=== PATIENT | female | born 2000 | race Caucasian/White ===

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

== ENCOUNTER 2024-12-11 05:13 | Inpatient (IN) ==
[2024-12-11] MEDS ORDERED: LIDOCAINE 1% LOCAL 20 ML VIAL INFIL PRN (06:37)
[2024-12-11] MEDS: LACTATED RINGER'S 1,000 ML IV PRN (06:51)
[2024-12-11] MEDS ORDERED: NALBUPHINE HCL INJ 10 MG/ML AMP IV PRN (06:59)
[2024-12-11] MEDS ORDERED: SODIUM CHLORIDE 0.9% PF INJ 10 ML VIAL EPI PRN (06:59)
[2024-12-11] MEDS ORDERED: ROPIVACAINE 0.5% PF 5 MG/ML 20 ML VIAL EPI PRN (06:59)
[2024-12-11] MEDS ORDERED: NALOXONE HCL 1 MG in SODIUM CHLORIDE 0.9% 1,000 ML IV PRN (06:59)
[2024-12-11] MEDS ORDERED: NALOXONE HCL 0.4 MG/1 ML VIAL/CARP IV PRN (06:59)
[2024-12-11] MEDS ORDERED: LIDOCAINE 2% MPF LOCAL 5 ML VIAL EPI PRN (06:59)
[2024-12-11] MEDS ORDERED: BUPIVACAINE 0.25% PF 30 ML VIAL EPI PRN (06:59)
[2024-12-11] MEDS ORDERED: diphenhydrAMINE 50 MG/ML VIAL IV PRN (06:59)
--- NOTE | 2024-12-11 06:59 | Anesthesiology Consultation ---
Date of Service December 11, 2024 Assessment & Plan Chart Review Chart Review: Acceptable Risk for Labor Epidural Consults Requested none History Height/Weight Height: 5 ft 1 in Weight: 94.9 kg Allergies Allergy/AdvReac Type Severity Reaction Status Date / Time No Known Allergies Allergy Verified 09/10/21 21:10 Medications Home Medications Medication Instructions Recorded Confirmed Last Taken 1 tab PO DAILY 12/11/24 12/11/24 Unknown Vitamin B-12 1,000 mcg PO DAILY 12/11/24 12/11/24 Unknown Vitron-C 1 tab PO DAILY 12/11/24 12/11/24 Unknown Active Medications Generic Name Dose Route Start Last Admin Trade Name Freq PRN Reason Stop Dose Admin Lactated Ringer's 1,000 mls @ 125 mls/hr 12/11/24 06:37 12/11/24 06:53 Lr IV 12/13/24 06:36 999 mls/hr .Q8H PRN Infusion L&D Protocol Protocol Past Medical History Medical History Iron deficiency anemia Depression took Zoloft prior to . Was seeing therapist in 04/2021 Spontaneous vaginal delivery 04/11/20 [facility] [place] No significant past medical history Past Family History Family History Other Gallbladder disease Hypertension Past Surgical History Surgical History H/O foot surgery No significant past surgical history Social History Smoking Status: Former smoker tobacco type: e-cigarettes Do You Dip or Chew Tobacco: No Hx Alcohol Use: No Hx Substance Use: Yes substance use type: marijuana Substance Use Type Other:: stopped with + test Last Used Substance: Unknown Last Used Substance Other:: Hasn't smoked marijuana since beginning of . Has med mj card. Physical Exam Vital Signs Last Vital Signs Temp 36.6 C 12/11/24 05:55 Pulse 91 H 12/11/24 05:55 Resp 18 12/11/24 05:55 BP 133/65 12/11/24 05:55
--- NOTE | 2024-12-11 07:01 | History & Physical Report ---
Date of Service December 11, 2024 Assessment & Plan Admission and Anticipated Discharge Date Admission Date: December 11, 2024 History of Present Illness Chief Complaint: onset of labor Primary Care Provider: NO PCP 24 F P2002 at term admitted in labor. GBS is negative. Allergies Allergy/AdvReac Type Severity Reaction Status Date / Time No Known Allergies Allergy Verified 09/10/21 21:10 Home Medications Medication Instructions Recorded Confirmed Type 1 tab PO DAILY 12/11/24 12/11/24 History Vitamin B-12 1,000 mcg PO DAILY 12/11/24 12/11/24 History Vitron-C 1 tab PO DAILY 12/11/24 12/11/24 History Patient History Medical History Iron deficiency anemia Depression took Zoloft prior to . Was seeing therapist in 04/2021 Spontaneous vaginal delivery 04/11/20 [facility] [place] significant past medical history Surgical History H/O foot surgery No significant past surgical history Family History Other Gallbladder disease Hypertension Social History Smoking Status: Former smoker Tobacco Type: E-cigarettes / Vaping Second Hand Exposure: Yes; Do You Dip or Chew Tobacco: No; Hx Alcohol Use: No Hx Substance Use: Yes Last Used Substance: Unknown Last Used Substance Other:: Hasn't smoked marijuana since beginning of . Has med mj card. 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 How many Children do You have: 1 Feels Safe at Home: Yes Childhood Exposure to Second-Hand Smoke: No Diet: regular Dental Care, Regularly: Yes Gender Identity: Female Assistive Devices: Glasses OB History x2 [employer] History neg Review of Systems All systems reviewed & are unremarkable except as noted in HPI & below Physical Exam Constitutional: WD/WN, vitals as above Respiratory: normal respiratory effort, lungs clear to auscultation Cardiovascular: Rate/Rhythm: regular rate and regular rhythm Gastrointestinal (Abdomen): Inspection/Auscultation: abdomen normal to inspection Musculoskeletal: Extremities: extremities normal to inspection Skin: no rashes, warm and dry Neurologic: patellar DTR's 2+ bilat, sensation intact Psychiatric: A+Ox3, euthymic affect Genitourinary: Manual OB Exam: + cervical dilation 3 cm and 4 cm, + cervical effacement 80% and + station -2 OB Exam Monitor Tracing: + external FHT monitor used, + external uterine monitor used, + category I and + normal FHT variability Results & Data Vital Signs (Past 12 Hours) Vital Signs Temp Pulse Resp BP 12/11/24 05:55 36.6 C 91 H 18 133/65 12/11/24 05:24 36.6 C 12/11/24 05:22 91 H 133/65 Monitoring External Monitor Cat 1
[2024-12-11 07:07] LABS: Hematocrit (blood only) 32.9 % (37.0-47.0); Hemoglobin 10.8 g/dl (12.0-16.0); Mean Corpuscular Hemoglobin 28.4 pg (25.0-34.0); Mean Corpuscular Volume 86.6 fL (80.0-100.0); Platelet Count 417 K/uL (130-400); RDW Standard Deviation 44.3 fL (36.4-46.3); Red Blood Count 3.80 M/uL (4.20-5.40); White Blood Count 17.10 K/ul (4.8-10.8)
[2024-12-11] MEDS: fentANYL 2 MCG/ML BUPIVacaine 0.125%-NSS 100ML BAG ONE (07:25)
[2024-12-11] MEDS: LIDOCAINE 2%/EPINEPHRINE 1:200,000 20 ML PF ONE ×2 (07:36→10:50)
[2024-12-11] MEDS: SODIUM CHLORIDE 0.9% PF INJ 10 ML VIAL ONE (07:38)
[2024-12-11] MEDS: BUPIVACAINE 0.25% PF 30 ML VIAL ONE (07:38)
--- NOTE | 2024-12-11 08:36 | Obstetrical Progress Note ---
Date of Service December 11, 2024 Assessment & Plan Admission and Anticipated Discharge Date Admission Date: December 11, 2024 Subjective Patient seen and examined. Admitted by Dr. Alvares for labor and at term. reviewed her records and history received epidural for pain, comfortable now. Vital signs stable afebrile, heart rate had been category 1, Cervix is 6-7 , 70%, head is -1 station, large bulging bag, offerred AROM and patient accepted, moderate meconium stained fluid was obtained Anterior fontanelle at 11 o'clock position, placed to lateral position Continue to monitor closely Results & Data Vital Signs (Past 12 Hours) Vital Signs Temp Pulse Resp BP Pulse Ox 12/11/24 08:28 89 91 12/11/24 08:26 82 91 12/11/24 08:23 77 91 12/11/24 08:21 80 100 12/11/24 08:19 63 115/59 L 12/11/24 08:16 63 100 12/11/24 08:13 81 105/76 12/11/24 08:11 78 91 12/11/24 08:10 85 90 12/11/24 08:06 81 100 12/11/24 08:04 94 H 133/58 L 12/11/24 08:01 71 99 12/11/24 07:58 68 112/55 L 12/11/24 07:56 100 12/11/24 07:56 69 12/11/24 07:56 59 L 149/59 H 12/11/24 07:53 74 102/53 L 12/11/24 07:51 79 104/60 81 L 12/11/24 07:49 80 104/54 L 12/11/24 07:48 82 92 12/11/24 07:47 73 103/57 L 12/11/24 07:46 91 H 97 12/11/24 07:45 78 120/67 12/11/24 07:43 86 12/11/24 07:43 80 114/58 L 93 12/11/24 07:42 96 H 113/66 12/11/24 07:41 85 87 L 12/11/24 07:39 82 123/66 12/11/24 07:37 97 H 120/65 92 12/11/24 07:36 86 94 12/11/24 07:35 82 131/64 12/11/24 07:33 84 122/70 12/11/24 07:31 84 128/66 100 12/11/24 07:29 79 135/69 92 12/11/24 07:27 91 H 138/81 12/11/24 07:26 90 98 12/11/24 07:25 75 116/63 12/11/24 07:24 75 116/66 12/11/24 07:23 20 12/11/24 07:23 36.7 C 20 12/11/24 07:21 79 80 L 12/11/24 07:20 80 90 12/11/24 07:19 71 120/77 12/11/24 07:16 90 75 L 12/11/24 07:13 90 85 L 12/11/24 07:11 94 H 100 12/11/24 07:08 90 135/84 12/11/24 07:06 91 H 99 12/11/24 05:55 36.6 C 91 H 18 133/65 12/11/24 05:24 36.6 C 12/11/24 05:22 91 H 133/65
[2024-12-11] MEDS: LIDOCAINE 2%/EPINEPHRINE 1:200,000 20 ML PF EPI STA (10:37)
--- NOTE | 2024-12-11 10:41 | Anesthesia Procedure Note ---
Date of Service December 11, 2024 Anesthesia Epidural Re-Dose Vital Signs Temp Pulse Resp BP Pulse Ox 37.0 C 81 20 126/59 L 97 12/11/24 10:00 12/11/24 10:37 12/11/24 10:00 12/11/24 10:30 12/11/24 10:37 Notes Pain Intensity: 2 Dilatation (cm): 8.5 Effacement (%): 90 Called by nursing to evaluate epidural as the patient is having increased pain. The epidural was re-dosed with the following medications (all medications via epidural route) after negative aspiration of the epidural catheter for CSF/HEME. 5 cc 2% Lidocaine with epi via epidural After Epidural Re-Dose Mental Status: alert / awake / arousable and participated in evaluation Pain: improving with treatment Airway Patency, RR, SpO2: stable & adequate BP & HR: stable & adequate
[2024-12-11] MEDS: fentANYL 2 MCG/ML BUPIVacaine 0.125%-NSS 100ML BAG EPI PRN (13:02)
[2024-12-11] MEDS: OXYTOCIN 30 UNITS/NSS 30 UNITS/500 ML BAG IV PRN (13:22)
[2024-12-11] MEDS ORDERED: HYDROCORTISONE ACETATE 25 MG SUPP PR PRN (13:30)
[2024-12-11] MEDS ORDERED: OXYTOCIN 30 UNITS/NSS 30 UNITS/500 ML BAG IV PRN (13:30)
--- NOTE | 2024-12-11 13:34 | Delivery Summary ---
Vaginal Delivery Summary Date of Service December 11, 2024 Vaginal Delivery Summary Patient was found to be fully dilated and desired to push. She pushed with 2 contractions min and delivered the head and then shoulders with minimal traction. Loose nuchal cord x1 was reduced. The baby was handed off to the mother. The cord was clampedx2 and cut at 1 minute. The vagina and perineum were checked and found to have a small 2 nd degree perineal laceration. The vaginal mucosa was repaired with 2/0 vicryl and skin on subcuticular fashion. The placenta was delivered spontaneously as intact and complete. The uterus was explored and found to be empty. QBL was 200 ml ml. The fundus was firm. The baby was a viable male , Apgars 8/9, the weight is pending The mother and the baby tolerated the procedure well. No complications happened and I was present during whole procedure.
--- NOTE | 2024-12-11 14:33 | Anesthesia Procedure Note ---
Date of Service December 11, 2024 Anesthesia Post Epidural Note Vital Signs Vital Signs: Temp Pulse Resp BP Pulse Ox 36.8 C 95 H 18 140/63 89 L 12/11/24 12:01 12/11/24 13:43 12/11/24 12:43 12/11/24 13:43 12/11/24 13:13 Pain Intensity Lower Abdomen: Pain Intensity: 0 Notes Mental Status: alert / awake / arousable and participated in evaluation Nausea / Vomiting: adequately controlled Pain: adequately controlled Airway Patency, RR, SpO2: stable & adequate BP & HR: stable & adequate Hydration State: stable & adequate Neuraxial Anesthesia: was administered and sensory block is resolving Anesthetic Complications: no major complications apparent and Pt Satisfied with anesthetic care Epidural: Removed without complications and With tip intact
[2024-12-11] MEDS: BUPIVACAINE 0.25% PF 30 ML VIAL EPI STA (14:47)
[2024-12-11] MEDS: SODIUM CHLORIDE 0.9% PF INJ 10 ML VIAL EPI STA (14:48)
[2024-12-11] MEDS: DIPHTHER/TETAN/PERTUS Vaccine (Tdap, Adol/Adult) 0.5mL IM ONE (16:31)
[2024-12-11] MEDS: MEASLES, MUMPS & RUBELLA VIRUS VACCINE (MMR) 0.5ML VIAL SQ ONE (16:32)
[2024-12-11] MEDS: BENZOCAINE 20% SPRY 85 APPLN/85 GM CAN EXT PRN (19:12)
[2024-12-11] MEDS: DOCUSATE SODIUM 100 MG CAP PO SCH (20:40)
[2024-12-11] MEDS: ONDANSETRON 4 MG OD TAB PO PRN (20:55)
[2024-12-11] MEDS: ACETAMINOPHEN 325 MG TAB PO PRN (23:26)
[2024-12-11] MEDS: IBUPROFEN 600 MG TAB PO PRN (23:26)
[2024-12-12 06:20] LABS: Hematocrit (blood only) 29.5 % (37.0-47.0); Hemoglobin 10.1 g/dl (12.0-16.0); Mean Corpuscular Hemoglobin 30.1 pg (25.0-34.0); Mean Corpuscular Volume 87.8 fL (80.0-100.0); Platelet Count 400 K/uL (130-400); RDW Standard Deviation 44.6 fL (36.4-46.3); Red Blood Count 3.36 M/uL (4.20-5.40); White Blood Count 16.94 K/ul (4.8-10.8)
[2024-12-12] MEDS: FERROUS SULFATE 325 MG TAB PO SCH (07:13)
[2024-12-12] MEDS: PRENATAL VITAMIN 1 TAB PO SCH (07:14)
[2024-12-12 07:25] VITALS: RESP 18; O2SAT 98
--- NOTE | 2024-12-12 09:57 | Obstetrical Progress Note ---
Date of Service December 12, 2024 Subjective Ambulation: ambulating normally Voiding: no voiding problems Passing Gas:: Yes Diet Tolerance:: regular diet Lochia:: Small Feeding Type:: breast feeding Current Pain Level(1-10): 0 doing well. plans for d/c today. Physical Exam Constitutional WD/WN, vitals as above Gastrointestinal (Abdomen) Inspection/Auscultation: abdomen normal to inspection abdomen soft and non-tender. fundus firm below U. Musculoskeletal Extremities: extremities normal to inspection Skin no rashes, warm and dry Neurologic patellar DTR's 2+ bilat, sensation intact Psychiatric A+Ox3, euthymic affect Results & Data Vital Signs (Past 12 Hours) Vital Signs Temp Pulse Resp BP Pulse Ox O2 Del Method 12/12/24 07:20 36.3 C L 76 18 131/69 98 Room Air 12/12/24 03:10 36.4 C L 62 20 130/83 Room Air 12/11/24 23:24 36.8 C 74 18 97/66 L Room Air Laboratory Results Laboratory Results - last 48 hr 12/11/24 12/12/24 06:55 06:01 WBC 17.10 H 16.94 H RBC 3.80 L 3.36 L Hgb 10.8 L 10.1 L Hct 32.9 L 29.5 L MCV 86.6 87.8 MCH 28.4 30.1 MCHC 32.8 34.2 RDW Std Deviation 44.3 44.6 RDW Coeff of Alexis 14.2 14.2 Plt Count 417 H 400 MPV 10.4 10.6 Treponema pallidum Ab Negative Blood Type A Negative A Negative Antibody Screen NEGATIVE Cancelled Screen Negative
[2024-12-12 12:42] VITALS: BP 102/68; PULSE 74; TEMP 98.1
== END 2024-12-12 16:15 | disposition home or self-care (01) | DRG 807 ==
LOC: OPB 05:13 → 4S1 05:18 → 4E2 16:40